=== PATIENT | male | born 1960 | race Caucasian/White ===

== ENCOUNTER 2017-09-28 22:03 | Emergency (ER) | payer OTHER ==
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
[2017-09-28] MEDS: DIPH,PERTUSS(ACELL),TET VAC/PF 0.5 ML DISP.SYRIN IM ONE (22:54)
[2017-09-28] MEDS: ALPRAZOLAM 0.5 MG TABLET PO ONE (23:00)
[2017-09-28 23:06] VITALS: BP 158/68
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
== END 2017-09-28 23:05 | disposition home or self-care (01) ==
LOC: ED 22:03
DX: S01.01XA Laceration without foreign body of scalp, initial encounter (principal); V89.2XXA Person injured in unspecified motor-vehicle accident, traffic, initial encounter; Y93.9 Activity, unspecified; Y92.9 Unspecified place or not applicable; Y99.9 Unspecified external cause status; Z23 Encounter for immunization
CPT/HCPCS: 73030; 90471; 90715; 99283